=== PATIENT | female | born 1945 | race Caucasian/White ===

== ENCOUNTER 2017-01-01 13:51 | Emergency (ER) | payer MEDICARE, OTHER ==
[2017-01-01] MEDS ORDERED: KETOROLAC TROMETHAMINE 60 MG/2 ML VIAL IM ONE ×2 (14:21→15:19)
--- OUTSIDE RECORDS SUMMARY | 2017-01-01 14:35 | XMS REPORT | Continuity of Care Document ---
:1945 Author Organization [facility] ([facility]) Address [address] [place] [address] Phone [phone] Care Team Providers Name Role Phone Unavailable Primary Care Provider Unavailable Source Comments This disclosure is being made pursuant to the Care Everywhere program, applicable federal and state laws, and may not contain all informaitonavailable regarding this patient.[facility] ([facility]) Active Allergies and Adverse Reactions Not on File Current Medications Not on file Active Problems Not on file Social History Tobacco Use Types Packs/Day Years Used Date Never Assessed Plan of Care Health Maintenance Due Date Last Done Comments HCV Screening 1945 Hepatitis B Vaccine (1 of 3 - Primary Series) 1945 Tdap Vaccine 1958 Lipid Disorder Screening 1965 Td Vaccine 1965 Mammogram 1987 Colonoscopy 09/15/1997 Zoster Vaccine 2007 Osteoporosis Screening (DXA Bone Density) 2012 Pneumococcal Vaccine (1 of 2 - PCV13) 2012 Influenza Vaccine: Seasonal (#1) 06/22/2016 Results from Last 3 Months Not on file
--- NOTE | 2017-01-01 16:16 | ERNOTE ---
Lower Extremity HPI - Narrative Date of Service: 01/01/17 - General Lower Extremities Pain: hip: left Time Seen by Provider: 01/01/17 14:12 Source: patient, RN notes reviewed Exam Limitations: no limitations - Immun/Allergies/Home Medications Immunizations: IMMUNIZATION HX Immunizations Up to Date Yes History of Influenza Vaccine Yes Hx Pneumococcal Vaccination Yes Allergies/Adverse Reactions: Allergies Allergy/AdvReac Type Severity Reaction Status Date / Time tramadol AdvReac Mild PROJECTILE Verified 01/01/17 14:05 VOMITING PLASTIC TAPE AdvReac Mild RASH Uncoded 01/13/16 07:53 Home Medications: HOME MEDICATIONS Diltiazem HCl [Cardizem Cd] 240 mg PO DAILY 01/24/15 [Last Taken 03/17/15 21:00] Hydrochlorothiazide [Hydrodiuril] 25 mg PO DAILY 01/24/15 [Last Taken Unknown] Insulin Glargine,Hum.rec.anlog [Lantus] 45 units SC BID 01/24/15 [Last Taken Unknown] Lisinopril [Zestril] 40 mg PO DAILY 01/24/15 [Last Taken 06/17/15 0500] Metformin HCl [Glumetza] 1,000 mg PO BID 01/24/15 [Last Taken Unknown] Simvastatin [Zocor] 20 mg PO HS 01/24/15 [Last Taken Unknown] traZODone HCL [Desyrel] 100 mg PO HS 01/24/15 [Last Taken Unknown] Cholecalciferol (Vitamin D3) [Vitamin D3] 2,000 unit PO DAILY 06/13/15 [Last Taken Unknown] Calcium/Vit B12/FA/Pyridoxine [Folic Acid-Vit B6-Vit B12 Tab] 1 each PO DAILY [Last Taken Unknown] [place]-3 Fatty Acids/Fish Oil [Fish Oil 1,000 mg Capsule] 2 each PO DAILY [Last Taken Unknown] - History of Present Illness Narrative: Irais is a 71 year old female ambulatory to the ED for right hip pain that began a few days ago. She denies any injury. She reports an increase in pain when she lifted her leg to step into the shower today. She then had to drive to [place]. When she got in the car to come back home, she could not lift her left leg into the car d/t pain. She has taken ibuprofen with some improvement. She has had bilateral knee replacements and a low back surgery. She reports some chronic low back pain that worsens if she does much walking. Subsequent Symptoms: Denies: sensory loss, numbness, motor loss Prior Treament: Denies: similar symptoms before Review of Systems - Review of Systems Constitutional: Absent: recent illness, fever, malaise EYE: Present: no symptoms reported ENT: Present: no symptoms reported Respiratory: Present: no symptoms reported Cardiology: Present: no symptoms reported Gastrointestinal/Abdominal: Present: no symptoms reported Genitourinary: Present: no symptoms reported Musculoskeletal: Present: back pain, muscle pain, joint pain. Absent: neck pain , joint swelling Skin: Absent: lesions, lumps, change in color Neurological: Absent: weakness, numbness, tingling Endocrine: Present: no symptoms reported Hematologic/Lymphatic: Present: no symptoms reported Psych: Present: no symptoms reported - Patient's Past Medical History Patient History - Medical: Anxiety, Arthritis, Cataracts, Diabetes Type 2, Depression, Headache, Obesity, UTI'S Patient History - Cardiac/Respiratory: Hypertension, Hyperlipidemia Patient History - Cancer: No Hx of Cancer Patient History - Surgical Procedures: Back Surgery, Cataracts, Cholecystectomy , Colonoscopy, Total Knee Replacement Patient History - Other: None LMP (females 10-50): Menopausal - Family History Mother Family History - Medical: , Diabetes Type 2 Father Family History - Medical: , Diabetes Type 2 Family History - Cardiac/Respiratory: Hypertension Children Family History - Cardiac/Respiratory: Hypertension - Social History Living Situations: home Abuse History: No History of abuse Psych History: Hx of Anxiety, Hx of Depression Smoking Status: Never smoker Alcohol Use: occasionally Drug Use: none - Immunizations Immunizations Up to Date: Yes Hx Pneumococcal Vaccination: Yes History of Influenza Vaccine: Yes Physical Exam - Physical Exam General Appearance: Present: wd/wn, alert, no apparent distress, obese Respiratory: Present: no respiratory distress, normal breath sounds, no accessory muscle use, lungs clear Cardiovascular/Chest: Present: regular rate, rhythm, no murmur, normal peripheral pulses Back Exam: Present: normal inspection, no vertebral tenderness Extremity Exam: Present: no edema, decreased range of motion - left hip, other - tenderness with palpation of left anterior hip and left SI joint region Neurological Exam: Present: alert, oriented, normal mood/affect, no motor/ sensory deficits Skin Exam: Present: normal color, warm/dry ED Progress - Vital Signs Patient's Vital Signs:: I have reviewed the patient's vital signs. Vital Signs: Vital Signs 01/01/17 14:00 Temperature 36.8 C Pulse Rate 86 Respiratory 18 Rate Blood Pressure 207/98 O2 Sat by Pulse 97 Oximetry - X-Ray X-Ray #1 X-Ray: hip Interpretation: Reviewed by me X-ray Comments: Technique: Hip Pelvis 2-3 views LT * Findings: There is moderate to advanced osteoarthritis identified within the bilateral hips, left greater than right. No fracture or dislocation. Normal bone mineralization. No erosive change. No lytic or blastic lesions. Soft tissues are unremarkable. The crosstable lateral is nondiagnostic. IMPRESSION: 1. Degenerative change without acute osseous abnormality. Electronically signed by Thomas Montenegro M.D.. - Progress/Reassessment Chief Complaint: Hip Pain/Injury Progress:: Improved Progress Note-Subjective: 01/01/17 16:16 Verbalizes some improvement in pain with Toradol. Waiting for xray results. Departure Clinical Impression: Osteoarthritis of left hip Qualifiers: Osteoarthritis type: primary Qualified Code(s): M16.12 - Unilateral primary osteoarthritis, left hip - Departure Disposition: Home Follow Up Needed Condition: Stable Instructions: Arthritis Additional Instructions: OK to take ibuprofen - just make sure you are not taking it on an empty stomach Consider seeing orthopedics for further treatment options Referrals: Philip Monterroso MD [Primary Care Provider] - Toby Riggs MD [Staff Physician] -
[2017-01-01 17:04] VITALS: BP 143/67
== END 2017-01-01 16:37 | disposition home or self-care (01) ==
LOC: ER 13:51
DX: M16.12 Unilateral primary osteoarthritis, left hip (principal); I10 Essential (primary) hypertension; E78.5 Hyperlipidemia, unspecified; E11.9 Type 2 diabetes mellitus without complications; Z79.4 Long term (current) use of insulin; Z87.440 Personal history of urinary (tract) infections

== ENCOUNTER 2017-03-29 10:07 | Day surgery (SDC) | payer MEDICARE, OTHER ==
[~2017-03-29 10:07] MED LIST: RINGERS SOLUTION,LACTATED 1,000 ML IV PRN
--- OUTSIDE RECORDS SUMMARY | 2017-03-29 10:11 | XMS REPORT | Continuity of Care Document ---
:1945 Author Organization [facility] ([facility]) Address [address] [place] [address] Phone [phone] Care Team Providers Name Role Phone Unavailable Primary Care Provider Unavailable Source Comments This disclosure is being made pursuant to the Care Everywhere program, applicable federal and state laws, and may not contain all informaitonavailable regarding this patient.[facility] ([facility]) Active Allergies and Adverse Reactions Not on [...]
[2017-03-29] MEDS ORDERED: RINGERS SOLUTION,LACTATED 1,000 ML IV ONE (13:25)
[2017-03-29] MEDS ORDERED: RINGERS SOLUTION,LACTATED 1,000 ML IV PRN (14:32)
[2017-03-29 15:17] VITALS: BP 165/87
--- NOTE | 2017-03-29 18:33 | OR ---
Operative Report - Dictated Report Narrative: OPERATIVE REPORT DATE OF OPERATION: 03/29/2017 PREOPERATIVE DIAGNOSIS: History of colon polyps POSTOPERATIVE DIAGNOSIS: Three 4mm polyps at 60 cm, 35 cm, 30 cm (pathology pending). Very redundant colon. Obstructive sleep apnea. Exam only accomplished to the presumed hepatic flexure OPERATION: Colonoscopy to the hepatic flexure with hot biopsy forceps polypectomy 3 SURGEON: Ashly Rivera MD ANESTHESIA: BRIAN Snowden CRNA INDICATIONS FOR PROCEDURE: The patient is a 71-year-old female referred by Dr. Monterroso. She has had 3 previous colonoscopies (2000, 2005, and 2010). In 2010 she was found to have a possible polyp near the hepatic flexure was advised a 3-5 year follow-up. FINDINGS: Evidence of obstructive sleep apnea. Very redundant capacious colon with exam only accomplished to the hepatic flexure. Three 4 mm polyps at 60 cm, 30 cm, and 35 cm NARRATIVE OF PROCEDURE: The patient was identified in the holding area, and prior to the administration of anesthetic, a multidisciplinary timeout was observed. With the patient in the left lateral position and after the administration of intravenous sedation, the perineum was inspected. There was no evidence of pilonidal disease or skin breakdown. The external appearance of the anus was normal. Sphincter tone was good. The flexible fiberoptic colonoscope was inserted into the rectum which was insufflated with air. The rectal mucosa and submucosal vascular pattern appeared normal, the prep was seen to be complete. The scope was advanced through a very tortuous sigmoid colon, up the descending colon, and around the splenic flexure where the triangular haustral architecture of the transverse colon was seen. The scope was advanced across the transverse colon, to the presumed hepatic flexure where angulation was encountered. Despite persistent maneuvering the corner could not be negotiated. The scope was withdrawn and readvanced on 3 separate occasions with similar results. The scope was therefore slowly withdrawn in a circular fashion so that all aspects of distal colonic mucosa were inspected. The colon was very tortuous and capacious in character, however the haustral architecture appeared well preserved throughout with no evidence of external compression. The mucosa and submucosal vascular pattern appeared normal, specifically there was no gross evidence to suggest colitis or inflammatory bowel disease and no AV malformations were seen. No diverticulosis was demonstrated. 4 mm polyps were encountered at 60 cm, 35 cm, and 30 cm. These were biopsied and then thoroughly destroyed with electrocautery. The sites were seen to be complete and hemostatic. The scope was gradually withdrawn to the level of the rectum. As much insufflated air as possible was removed. The scope was withdrawn from the patient and the procedure terminated. The patient tolerated the anesthetic and procedure well without complication and was transferred back to the ambulatory surgery area awake and in stable condition. The patient remained stable throughout a period of postoperative observation. She denied abdominal discomfort, was able to tolerate by mouth intake, and was up without assistance. I shared the operative findings with the patient and she was given copies of the photographs which appear in the medical record. She was discharged home with instructions not to engage in hazardous activity today , but may resume normal activity tomorrow, and advance diet as tolerated. She is to continue those medications as listed in the history and physical exam. I made arrangements to contact her with the biopsy reports and will make additional recommendations for treatment and follow-up based upon those results. Reviewed and electronically signed
== END 2017-03-29 10:08 | disposition home or self-care (01) ==
LOC: AMB 10:07
PROVIDERS: ATTEND Surgery
PROC: 0DBE8ZX Excision of Large Intestine, Via Natural or Artificial Opening Endoscopic, Diagnostic (ICD-10-PCS; principal; 2017-03-29 11:55)
DX: Z12.11 Encounter for screening for malignant neoplasm of colon (principal); K63.5 Polyp of colon; I10 Essential (primary) hypertension; E11.9 Type 2 diabetes mellitus without complications; E78.5 Hyperlipidemia, unspecified; M19.90 Unspecified osteoarthritis, unspecified site; F41.8 Other specified anxiety disorders; E66.9 Obesity, unspecified; Z68.43 Body mass index [BMI] 50.0-59.9, adult; G47.33 Obstructive sleep apnea (adult) (pediatric)

== ENCOUNTER 2021-04-28 20:31 | Inpatient (IN) ==
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
[2021-04-28] MEDS ORDERED: LIDOCAINE HCL/EPINEPHRINE 20 ML VIAL IJ ONE (22:19)
[2021-04-28] MEDS ORDERED: LIDOCAINE HCL/EPINEPHRINE 50 ML VIAL IJ ONE (22:22)
[2021-04-28 23:06] LABS: Hematocrit 40.2 % (37.0-47.0); Hemoglobin 13.1 gm/dL (12.5-16.0); Mean Cell Volume 92.8 fl (78-100); Mean Corpuscular Hemoglobin 30.3 pg (27-31); Mean Corpuscular Hgb Conc 32.6 g/dl (32-36); Mean Platelet Volume 9.5 fl (8-12.5); Neutrophil # 10.2 K/mm3 (1.3-6.0); Neutrophil % 67.9 % (42-75.0); Platelet Count 244 K/mm3 (150-450); Red Blood Count 4.33 M/mm3 (4.2-5.4)
[2021-04-28 23:41] LABS: Albumin * 3.7 gm/dl (3.4-5.0); Anion Gap 11.9 mmol/L (6.8-13.8); BUN/Creatinine Ratio 17.9 (9.0-21.6); Bilirubin, Total 0.2 mg/dL (0.0-1.1); Calcium * 9.1 mg/dL (7.9-10.9); Carbon Dioxide 29.5 mmol/L (24-32.6); Potassium 4.4 mmol/L (3.4-4.6); Total Protein 7.2 gm/dL (6.2-8.2)
[2021-04-29] MEDS: MORPHINE SULFATE 2 MG/ML DISP.SYRIN IV SCH ×2 (03:25→07:28)
[2021-04-29] MEDS ORDERED: ACETAMINOPHEN 325 MG TABLET PO PRN (09:11)
[2021-04-29] MEDS ORDERED: ALBUTEROL SULFATE 2.5 MG/3 ML VIAL.NEB IH PRN (09:11)
[2021-04-29] MEDS: ONDANSETRON HCL/PF 2 MG/ML VIAL IV PRN (09:16)
[2021-04-29] MEDS: MORPHINE SULFATE 4 MG/ML SYRG IV PRN ×2 (09:20→22:00)
[2021-04-29] MEDS ORDERED: NORMAL SALINE 1,000 ML IV ONE (09:25)
--- NOTE | 2021-04-29 09:35 | HP ---
Chief Complaint - Chief Complaint Date of Service: 04/29/21 Time of Service: 09:27 Chief Complaint: I fell and broke my leg now I have right leg pain History of Present Illness: 75-year-old female with past medical history of type 2 diabetes, hypertension, morbid obesity, depression, anxiety disorder, hyperlipidemia, and bilateral total knee replacements was brought to the ER for evaluation of injuries that she sustained when she fell yesterday evening in her home. Patient reports she was at home with her dog and get up the phone with her niece and went to open the door to let the dog out and somehow she lost her footing and fell onto her right side. Patient reports hitting her head on a steel door frame sustaining a laceration to her forehead, she does however denies losing consciousness or any neurological symptoms. Patient immediately felt pain in her right leg specifically her knee and rated as a 10 out of 10. She had bilateral knee replacements several years ago and had no issues with them until now. Once in the ER the patient underwent imaging that confirmed a fracture of distal portion of the right femur, imaging of her head and neck was negative for any acute injuries. Labs on admission were nonremarkable, she has adequate hemoglobin and an unremarkable CMP. Orthopedics have been consulted and evaluated the patient at bedside and are planning to take her to surgery later this afternoon or tomorrow morning depending on when the hardware arrives. Until then the patient will be left n.p.o., will receive medications for pain management and will be giving her routine medications to manage her chronic conditions. We will continue to monitor closely. Medical History (Last Reviewed 04/29/21 @ 01:44 by Whitney Umanzor RN) Strain of calf muscle (Acute) Hypertension (Acute) Onset Date: ~1996 Hyperlipidemia (Acute) Onset Date: ~2003 Diabetes mellitus (Acute) Onset Date: ~1996 Internal derangement of knee (Acute) Osteoarthritis of left hip (Acute) Anxiety and depression Onset Date: Unknown Influenza vaccine not given wants to receive later 09/07/19. MONICA Daniels Morbid obesity Onset Date: Unknown Osteoarthritis Onset Date: Unknown CTS (carpal tunnel syndrome) Onset Date: ~2008 Bilateral Surgical History: Surgical History (Last Reviewed 04/29/21 @ 01:44 by Whitney Umanzor RN) Total knee replacement status (Acute) H/O arthroscopic knee surgery Onset Date: ~1990 Left H/O barium enema Onset Date: ~06/18/17 H/O colonoscopy Onset Date: ~03/29/1704/2001: [place] - normal 09/2006: normal 10/28/2011: capacious colon 03/2017: to hepatic flexure, very redundant capacious colon, tubular adenoma X3, H/O laminectomy Onset Date: ~09/30/10 History of carpal tunnel release Onset Date: ~09/2009, 02/03/2010, 12/16/2015, 01/13/2016 History of cholecystectomy Onset Date: ~1973 History of total knee arthroplasty Onset Date: ~06/17/15 03/18/15 (RT), 06/17/15 (LT) Family History: Family History (Last Reviewed 04/29/21 @ 01:44 by Whitney Umanzor RN) Brother Polio Obesity Father , 82 Colon cancer Mother Heart problem Colon cancer Sister Diabetes Social History: (Last Reviewed 04/29/21 @ 01:44 by Whitnye Umanzor RN) Social History: adopted: No shelter: No Marital status: / lives independently: Yes current occupational status: retired current occupation: retired Highest level of school completed/degree received: high school graduate Service: No Tobacco: Smoking Status: Never smoker Alcohol: alcohol intake: current alcohol intake frequency: holiday/special occasion Substance Use: substance use type: does not use Dietary Habits: caffeine: Yes caffeine comment: 6 Type: coffee Peds Patient Hx - Developmental: No Pertinent Hx Peds Patient Hx - Medical: No Pertinent Hx Peds Patient Hx - Cardiac/Respiratory: No Pertinent Hx Peds Patient Hx - Surgical: No Surgical History Patient History - Cancer: No Hx of Cancer Review Of Systems (GEN) - Review of Systems Generalized/Overall Review: Present: No Symptoms Reported EENTM: Present: No Symptoms Reported Respiratory: Present: No Symptoms Reported Cardiac: Present: No Symptoms Reported Abdominal: Present: No Symptoms Reported Genitourinary: Present: No Symptoms Reported Musculoskeletal: Present: Joint Pain - Right lower extremity pain, Joint Swelling Neurological: Present: No Symptoms Reported Skin: Present: No Symptoms Reported Endocrine: Present: No Symptoms Reported Immunizations: IMMUNIZATION HX Immunizations Up to Date Yes Immunizations Comment full COVID vaccine History of Influenza Vaccine Yes Hx Pneumococcal Vaccination Yes Allergies/Adverse Reactions: Allergies Allergy/AdvReac Type Severity Reaction Status Date / Time tramadol AdvReac Mild PROJECTILE Verified 04/28/21 20:41 VOMITING PLASTIC TAPE AdvReac Mild RASH Uncoded 04/28/21 20:41 Home Medications: HOME MEDICATIONS Aspirin 325 mg PO DAILY 03/15/17 [Last Taken Unknown] ibuprofen 200 mg tablet 200 mg PO Q8H PRN 05/22/18 [Last Taken Unknown] albuterol sulfate 90 mcg/actuation aerosol inhaler 2 inh IH Q6H PRN #18 g 09/07/19 [Last Taken Unknown] cholecalciferol (vitamin D3) 50 mcg (2,000 unit) capsule 4,000 unit PO DAILY #180 cap 09/07/19 [Last Taken Unknown] vitamin B12 500 mcg-folic acid 400 mcg tablet 1 tab PO DAILY #90 tab 09/07/19 [Last Taken Unknown] ascorbic acid (vitamin C) 1,000 mg tablet 1 g PO DAILY #60 tab 10/06/19 [Last Taken Unknown] blood sugar diagnostic See Dose Instructions .ROUTE .MEDSUPPLY #200 ea 02/07/20 [Last Taken Unknown] compression stockings 0 .ROUTE .MEDSUPPLY #1 ea 09/06/20 [Last Taken Unknown] metformin 1,000 mg 24 hr tablet,extended release 1,000 mg PO BID #180 tab 09/06/20 [Last Taken Unknown] atorvastatin 10 mg tablet 10 mg PO DAILY #90 tab 10/03/20 [Last Taken Unknown] diltiazem HCl 240 mg capsule,extended release 24 hr, controlled 240 mg PO Q24H #90 cap 10/03/20 [Last Taken Unknown] losartan 50 mg tablet 50 mg PO DAILY #90 tab 10/03/20 [Last Taken Unknown] sitagliptin 100 mg tablet 100 mg PO DAILY #90 tab 10/03/20 [Last Taken Unknown] insulin syringe-needle U-100 1 mL 31 gauge x 04/06" See Rx Instructions .ROUTE .MEDSUPPLY #100 ea 11/26/20 [Last Taken Unknown] insulin glargine 100 unit/mL subcutaneous solution 53 unit SUBCUT BID #50 ml 01/07/21 [Last Taken Unknown] spironolactone 25 mg tablet 25 mg PO DAILY #90 tab 03/06/21 [Last Taken Unknown] Exam - Exam Vital Signs: Vital Signs - Last Taken Temp 36.8 C 04/29/21 06:00 Pulse 91 06/08/21 06:00 Resp 20 04/29/21 06:00 BP 159/89 H 04/29/21 06:00 Pulse Ox 100 04/29/21 06:00 Constitutional: Present: Alert, Oriented x3, Cooperative, Well developed, Well nourished, No distress, Morbidly obese ENT Exam: Present: normal ENT inspection, hearing grossly normal Eye Exam: bilateral eye: normal inspection, PERRL, EOMI Neck: Present: non-tender, full range of motion, supple, normal inspection, trachea midline Back Exam: Present: normal inspection, no CVA tenderness, no vertebral tende rness Breasts: Present: Exam deferred, Nontender Respiratory: Present: chest non-tender, lungs clear, normal breath sounds, no respiratory distress, no accessory muscle use Cardiovascular/Chest: Present: normal peripheral pulses, regular rate, rhythm, no chest tenderness, no edema, no gallop, no JVD, no murmur, no rub Peripheral Pulses: dorsalis-pedis (R): 3+, dorsalis-pedis (L): 3+ Abdomen: Present: Normal bowel sounds, soft, nontender, nondistended, no rebound tenderness, no hepatospenomegaly, obese /Rectal: Present: Exam deferred Extremity: Present: no pedal edema, no calf tenderness, lower extremity edema, leg pain - Right lower extremity pain, other - Right lower extremity shortened and externally rotated, sensation and movement intact Skin Exam: Present: normal color, warm/dry, no cyanosis Lymphatic: Present: no adenopathy Neurologic: Present: electrical controls assembler II-XII nml as tested, normal cerebellar test, no motor/sensory deficits, alert, normal mood/affect, oriented x 3 Appearance: Present: appropriate appearance, appropriate insight, neat, no memory impairment Eye contact: Present: cooperative, good eye contact, normal speech Thoughts: Present: normal thought pattern, no apparent hallucination Diagnostic Studies: Abnormal Lab Results 04/28/21 04/28/21 Range/Units 23:00 23:00 WBC 15.0 H (4.0-10.5) K/mm3 Immature Gran % (Auto) 0.70 H (0.001-0.429) % Immature Gran # (Auto) 0.10 H (0.000-0.0310) K/mm3 Neutrophils # 10.2 H (1.3-6.0) K/mm3 Monocytes # 1.2 H (0.0-1.0) k/mm3 Est GFR (Non-Af Amer) 54 L (60-130) mL/min Random Glucose 179 H (70-110) mg/dL Laboratory Results WBC 15.0 K/mm3 (4.0-10.5) H 04/28/21 23:00 RBC 4.33 M/mm3 (4.2-5.4) 04/28/21 23:00 Hgb 13.1 gm/dL (12.5-16.0) 04/28/21 23:00 Hct 40.2 % (37.0-47.0) 04/28/21 23:00 MCV 92.8 fl (78-100) 04/28/21 23:00 MCH 30.3 pg (27-31) 04/28/21 23:00 MCHC 32.6 g/dl (32-36) 04/28/21 23:00 RDW 12.0 % (11.5-14.0) 04/28/21 23:00 Plt Count 244 K/mm3 (150-450) 04/28/21 23:00 MPV 9.5 fl (8-12.5) 04/28/21 23:00 Immature Gran % (Auto) 0.70 % (0.001-0.429) H 04/28/21 23:00 Immature Gran # (Auto) 0.10 K/mm3 (0.000-0.0310) H 04/28/21 23:00 Neutrophils % 67.9 % (42-75.0) 04/28/21 23:00 Lymphocytes % 21.8 % (20-51) 04/28/21 23:00 Monocytes % 7.8 % (0.0-9) 04/28/21 23:00 Eosinophils % 1.3 % (0.0-3.0) 04/28/21 23:00 Basophils % 0.5 % (0.0-1.0) 04/28/21 23:00 Nucleated RBC % 0.0 k/mm3 (0-1) 04/28/21 23:00 Neutrophils # 10.2 K/mm3 (1.3-6.0) H 04/28/21 23:00 Lymphocytes # 3.28 k/mm3 (1.5-3.5) 04/28/21 23:00 Monocytes # 1.2 k/mm3 (0.0-1.0) H 04/28/21 23:00 Eosinophils # 0.2 k/mm3 (0.0-0.7) 04/28/21 23:00 Absolute Basophils 0.1 k/mm3 (0.0-0.1) 04/28/21 23:00 Sodium 139 mmol/L (132-142) 04/28/21 23:00 Plasma Sodium 140 mmol/L (130-142) 04/28/21 23:00 Potassium 4.4 mmol/L (3.4-4.6) 04/28/21 23:00 Chloride 102 mmol/L (97-106) 04/28/21 23:00 Carbon Dioxide 29.5 mmol/L (24-32.6) 04/28/21 23:00 Anion Gap 11.9 mmol/L (6.8-13.8) 04/28/21 23:00 BUN 19 mg/dL (3-23) 04/28/21 23:00 Creatinine 1.06 mg/dL (0.4-1.4) 04/28/21 23:00 Est GFR (Non-Af Amer) 54 mL/min (60-130) L 04/28/21 23:00 BUN/Creatinine Ratio 17.9 (9.0-21.6) 04/28/21 23:00 Random Glucose 179 mg/dL (70-110) H 04/28/21 23:00 Calcium 9.1 mg/dL (7.9-10.9) 04/28/21 23:00 Calcium Adj for Albumin 9.0 mg/dL (8.4-10.2) 04/28/21 23:00 Total Bilirubin 0.2 mg/dL (0.0-1.1) 04/28/21 23:00 AST 16 U/L (0-48) 04/28/21 23:00 ALT 41 U/L (19-67) 04/28/21 23:00 Alkaline Phosphatase 67 U/L (50-170) 04/28/21 23:00 Total Protein 7.2 gm/dL (6.2-8.2) 04/28/21 23:00 Albumin 3.7 gm/dl (3.4-5.0) 04/28/21 23:00 SARS-CoV-2 (PCR) Not detected (NotDetected) 04/28/21 21:58 Assessment/Plan - Narrative Narrative: Patient was evaluated medical chart was reviewed and decision to admit for a diagnosis of right femoral fracture secondary to a fall was made. We will follow the lead of the orthopedic team who have ordered all the necessary hardware for the patient's surgery and plan on taking her to surgery later this afternoon or tomorrow morning. The patient's chronic conditions are all adequately controlled, she presents stable vitals and is in good spirits therefore we are medically clearing her for surgery. - Assessment/Plan (1) Femur fracture, right Problem: Acute Qualifiers: Encounter type: initial encounter Femur location: distal, unspecified portion Fracture type: closed Fracture morphology: other fracture Qualified Code(s): S72.491A - Other fracture of lower end of right femur, initial encounter for closed fracture (2) Laceration of scalp Problem: Acute Qualifiers: Encounter type: initial encounter Qualified Code(s): S01.01XA - Laceration without foreign body of scalp, initial encounter (3) Hypertension Problem: Acute Qualifiers: (4) Hyperlipidemia Problem: Acute Qualifiers: (5) Diabetes mellitus Problem: Acute Qualifiers: (6) Internal derangement of knee Problem: Acute (7) Total knee replacement status Problem: Acute Qualifiers:
--- NOTE | 2021-04-29 09:40 | CONS ---
- Reason for consultation (1) Femur fracture, right Date of Service: 04/29/21 HPI - General Date of Service: 04/29/21 Narrative: Irais reports that she sustained a ground-level fall while she was on her phone trying to let her dog out. When she fell she hit her head but did not lose consciousness. She reported severe right leg pain and was unable to ambulate. She was brought into the emergency department. X-rays evaluated at that time showed a periprosthetic right femur fracture. She is admitted to Dr. Garcia's service. She reports history of right knee replacement in 2014. She has been extremely happy with her knee replacement not had any difficulty related to it. Source: patient Exam Limitations: no limitations - History of Present Illness Timing/Duration: 24 hours Allergies/Adverse Reactions: Allergies tramadol Adverse Reaction (Mild, Verified 04/28/21 20:41) PROJECTILE VOMITING PLASTIC TAPE Adverse Reaction (Mild, Uncoded 04/28/21 20:41) RASH Home Medications: Home Medications Medication Instructions Recorded Last Taken Aspirin 325 mg PO DAILY 03/15/17 Unknown ibuprofen 200 mg tablet 200 mg PO Q8H PRN 05/22/18 Unknown albuterol sulfate 90 mcg/actuation 2 inh IH Q6H PRN #18 g 09/07/19 Unknown aerosol inhaler cholecalciferol (vitamin D3) 50 4,000 unit PO DAILY #180 cap 09/07/19 Unknown mcg (2,000 unit) capsule vitamin B12 500 mcg-folic acid 400 1 tab PO DAILY #90 tab 09/07/19 Unknown mcg tablet ascorbic acid (vitamin C) 1,000 mg 1 g PO DAILY #60 tab 10/06/19 Unknown tablet blood sugar diagnostic See Dose Instructions .ROUTE 02/07/20 Unknown .MEDSUPPLY #200 ea compression stockings 0 .ROUTE .MEDSUPPLY #1 ea 09/06/20 Unknown metformin 1,000 mg 24 hr 1,000 mg PO BID #180 tab 09/06/20 Unknown tablet,extended release atorvastatin 10 mg tablet 10 mg PO DAILY #90 tab 10/03/20 Unknown diltiazem HCl 240 mg 240 mg PO Q24H #90 cap 10/03/20 Unknown capsule,extended release 24 hr, controlled losartan 50 mg tablet 50 mg PO DAILY #90 tab 10/03/20 Unknown sitagliptin 100 mg tablet 100 mg PO DAILY #90 tab 10/03/20 Unknown insulin syringe-needle U-100 1 mL See Rx Instructions .ROUTE 11/26/20 Unknown 31 gauge x 04/06" .MEDSUPPLY #100 ea insulin glargine 100 unit/mL 53 unit SUBCUT BID #50 ml 01/07/21 Unknown subcutaneous solution spironolactone 25 mg tablet 25 mg PO DAILY #90 tab 03/06/21 Unknown Procedures Colonoscopy (10/28/11) Excision of Large Intestine, Via Natural or Artificial Opening Endoscopic, Diagnostic (03/29/17) Introduction of Anti-inflammatory into Joints, Percutaneous Approach (01/13/17) Introduction of Local Anesthetic into Joints, Percutaneous Approach (01/13/17) Replacement of Left Lens with Synthetic Substitute, Percutaneous Approach (12/16/15) Replacement of Right Lens with Synthetic Substitute, Percutaneous Approach (01/13/16) Total knee replacement (06/17/15) Medications - Medications Current Medications: Current Medications Morphine Sulfate (Morphine Sulfate 4 Mg/Ml Syrg) 2 mg IV Q4H PRN PRN Reason: Pain Stop: 05/29/21 08:53 Last Admin: 04/29/21 09:20 Dose: 2 mg Documented by: Ondansetron HCl (Ondansetron Hcl/Pf 2 Mg/Ml Vial) 4 mg IV Q4H PRN PRN Reason: Nausea Stop: 05/29/21 01:00 Last Admin: 04/29/21 09:16 Dose: 4 mg Documented by: Physical Examination - Exam Narrative: At this time patient is lying in bed comfortable. Morbid obesity. No apparent distress. Local discomfort right distal femur with palpation. She reports sensation intact in right lower extremity. She is able to plantarflex and dorsiflex her right ankle. Pulses intact right lower extremity. X-rays reviewed show mildly displaced periprosthetic transverse fracture of the distal right femur. Vital Signs: Vital Signs - Last Taken Temp 36.8 C 04/29/21 06:00 Pulse 91 04/29/21 06:00 Resp 20 04/29/21 06:00 BP 159/89 H 04/29/21 06:00 Pulse Ox 100 04/29/21 06:00 O2 Oxygen Delivery Method CPAP Constitutional: Present: Alert, Oriented x3, Cooperative, No distress - Results and Findings: Lab/Microbiology results last 24 hrs: Abnormal/Pending Laboratory Last 24 HRS 04/28/21 04/28/21 23:00 23:00 WBC 15.0 H Immature Gran % (Auto) 0.70 H Immature Gran # (Auto) 0.10 H Neutrophils # 10.2 H Monocytes # 1.2 H Est GFR (Non-Af Amer) 54 L Random Glucose 179 H - Assessments/Findings (1) Femur fracture, right Diagnosis(s): Plan is open reduction internal fixation. Surgical risk discussed. Consents obtained. Patient's right lower extremity marked by Dr. Riggs. Problem: Acute Qualifiers: Encounter type: initial encounter Femur location: distal, unspecified portion Fracture type: closed Fracture morphology: other fracture Qualified Code(s): S72.491A - Other fracture of lower end of right femur, initial encounter for closed fracture
[2021-04-29] MEDS: SPIRONOLACTONE 25 MG TABLET PO SCH (12:51)
[2021-04-29] MEDS: DILTIAZEM HCL 240 MG CAP.SR.24H PO SCH ×2 (12:53→22:10)
[2021-04-29] MEDS: LOSARTAN POTASSIUM 50 MG TABLET PO SCH ×2 (12:54→22:11)
[2021-04-29] MEDS: INSULIN GLARGINE,HUM.REC.ANLOG 100 UNITS/ML VIAL SC SCH ×2 (12:54→20:47)
[2021-04-29] MEDS: CHOLECALCIFEROL 1,000 UNIT CAPSULE PO SCH (12:54)
[2021-04-29] MEDS: sitaGLIPtin PHOSPHATE 50 MG TABLET PO SCH (12:54)
--- NOTE | 2021-04-29 14:50 | ANES ---
Anesthesia Pre Procedure Eval Vitals/Labs: Last Vital Signs Temp 36.6 C 04/29/21 09:00 Pulse 89 04/29/21 14:12 Resp 18 04/29/21 14:12 BP 158/80 H 04/29/21 09:00 Pulse Ox 99 04/29/21 14:12 HOME MEDICATIONS Aspirin 325 mg PO DAILY 03/15/17 [Last Taken Unknown] ibuprofen 200 mg tablet 200 mg PO Q8H PRN 05/22/18 [Last Taken Unknown] albuterol sulfate 90 mcg/actuation aerosol inhaler 2 inh IH Q6H PRN #18 g 09/07/19 [Last Taken Unknown] cholecalciferol (vitamin D3) 50 mcg (2,000 unit) capsule 4,000 unit PO DAILY #180 cap 09/07/19 [Last Taken Unknown] vitamin B12 500 mcg-folic acid 400 mcg tablet 1 tab PO DAILY #90 tab 09/07/19 [Last Taken Unknown] ascorbic acid (vitamin C) 1,000 mg tablet 1 g PO DAILY #60 tab 10/06/19 [Last Taken Unknown] blood sugar diagnostic See Dose Instructions .ROUTE .MEDSUPPLY #200 ea 02/07/20 [Last Taken Unknown] compression stockings 0 .ROUTE .MEDSUPPLY #1 ea 09/06/20 [Last Taken Unknown] metformin 1,000 mg 24 hr tablet,extended release 1,000 mg PO BID #180 tab 09/06/20 [Last Taken Unknown] atorvastatin 10 mg tablet 10 mg PO DAILY #90 tab 10/03/20 [Last Taken Unknown] diltiazem HCl 240 mg capsule,extended release 24 hr, controlled 240 mg PO Q24H #90 cap 10/03/20 [Last Taken Unknown] losartan 50 mg tablet 50 mg PO DAILY #90 tab 10/03/20 [Last Taken Unknown] sitagliptin 100 mg tablet 100 mg PO DAILY #90 tab 10/03/20 [Last Taken Unknown] insulin syringe-needle U-100 1 mL 31 gauge x 04/06" See Rx Instructions .ROUTE .MEDSUPPLY #100 ea 11/26/20 [Last Taken Unknown] insulin glargine 100 unit/mL subcutaneous solution 53 unit SUBCUT BID #50 ml 01/07/21 [Last Taken Unknown] spironolactone 25 mg tablet 25 mg PO DAILY #90 tab 03/06/21 [Last Taken Unknown] Allergies/Adverse Reactions: Allergies Allergy/AdvReac Type Severity Reaction Status Date / Time tramadol AdvReac Mild PROJECTILE Verified 04/28/21 20:41 VOMITING PLASTIC TAPE AdvReac Mild RASH Uncoded 04/28/21 20:41 - Planned Procedure Planned Procedure: Right femur fracture Medication List Reviewed:: Yes Allergies Verified: Yes Medical History (Last Reviewed 04/29/21 @ 14:49 by Dio Ashraf CRNA) Strain of calf muscle (Acute) Hypertension (Acute) Onset Date: ~1996 Hyperlipidemia (Acute) Onset Date: ~2003 Diabetes mellitus (Acute) Onset Date: ~1996 Internal derangement of knee (Acute) Osteoarthritis of left hip (Acute) Anxiety and depression Onset Date: Unknown Influenza vaccine not given wants to receive later 09/07/19. MONICA Daniels Morbid obesity Onset Date: Unknown Osteoarthritis Onset Date: Unknown CTS (carpal tunnel syndrome) Onset Date: ~2008 Bilateral Surgical History (Last Reviewed 04/29/21 @ 14:49 by Dio Ashraf CRNA) Total knee replacement status (Acute) H/O arthroscopic knee surgery Onset Date: ~1990 Left H/O barium enema Onset Date: ~06/18/17 H/O colonoscopy Onset Date: ~03/29/1704/2001: [place] - normal 09/2006: normal 10/28/2011: capacious colon 03/2017: to hepatic flexure, very redundant capacious colon, tubular adenoma X3, H/O laminectomy Onset Date: ~09/30/10 History of carpal tunnel release Onset Date: ~09/2009, 02/03/2010, 12/16/2015, 01/13/2016 History of cholecystectomy Onset Date: ~1973 History of total knee arthroplasty Onset Date: ~06/17/15 03/18/15 (RT), 06/17/15 (LT) Family History (Last Reviewed 04/29/21 @ 14:49 by Dio Ashraf CRNA) Brother Polio Obesity Father , 82 Colon cancer Mother Heart problem Colon cancer Sister Diabetes - Family Anesthesia History Family History:: no untoward family reactions to anesthesia - Airway/Neck/Teeth Teeth Condition: intact Neck Exam: limited range of motion Mallampatti Score: 4 Thyromental (T-M) distance: > 6 cm Mandibulo Hyoid distance: > 3 cm - Respiratory Respiratory History: CPAP/BiPAP home use Respiratory Physical: lungs clear Smoking Status: Never smoker Sleep Apnea currently treated: Yes Sleep Apnea by current assessment: Yes - Cardiovascular Cardiac History: hypertension, hyperlipidemia Tolerate Activity: Poor Heart Sounds: S1 & S2, Regular - Gastrointestinal NPO since: MN - Anesthesia Assessment and Plan ASA Class: PS, III Anesthesia Type Plan: Spinal Planned difficult intubation/equipment available: No
[2021-04-29] MEDS ORDERED: MIDAZOLAM HCL/PF 5 MG/ML VIAL ONE (15:00)
[2021-04-29] MEDS ORDERED: BUPIVACAINE HCL/PF 10 ML VIAL ONE (15:00)
[2021-04-29] MEDS ORDERED: PROPOFOL VIAL IV ONE (15:00)
[2021-04-29] MEDS ORDERED: ceFAZolin SODIUM 1 GM VIAL ONE (15:06)
[2021-04-29] MEDS: NORMAL SALINE 1,000 ML IV PRN ×2 (16:00→20:57)
[2021-04-29] MEDS ORDERED: ACETAMINOPHEN 500 MG TABLET PO PRN (17:35)
[2021-04-29] MEDS ORDERED: ZOLPIDEM TARTRATE 5 MG TABLET PO PRN (17:35)
[2021-04-29] MEDS ORDERED: diphenhydrAMINE HCL 50 MG/ML VIAL IV PRN (17:35)
[2021-04-29] MEDS ORDERED: MAG HYDROX/ALUMINUM HYD/SIMETH 30 ML UDC PO PRN (17:35)
[2021-04-29] MEDS ORDERED: MAGNESIUM HYDROXIDE 30 ML UDC PO PRN (17:35)
[2021-04-29] MEDS ORDERED: RINGER'S SOLUTION,LACTATED 1,000 ML IV PRN (17:35)
--- NOTE | 2021-04-29 17:44 | OR ---
Operative Report - Dictated Report Narrative: SURGEON: Toby Riggs MD. ROUGHER MACHINE OPERATOR: Jose David Lam PA-C (provided a set of skilled educated hands and assisted with prepping, draping, positioning, retraction, manipulation, irrigation, placement of instruments, placement of implants, closure of the wounds and application of dressings, all of which could not be performed by the available surgical crew). PREOPERATIVE DIAGNOSES: 1. Closed right periprosthetic comminuted femur fracture. Postoperative diagnosis: Same ANESTHESIA: Spinal COMPLICATIONS: None. DRAINS: None. SPECIMENS: None. RETAINED IMPLANTS: Barillas and Nephew 4.5 mm 6-hole locking distal femoral lateral plate with associated screws. TOURNIQUET TIME: None PROCEDURES PERFORMED: 1. Open reduction and internal fixation of right periprosthetic distal femur fracture. 2. Intraoperative interpretation of x-rays. ESTIMATED BLOOD LOSS: 100 mL INDICATIONS FOR PROCEDURE: Mrs. Burt is a 75-year-old female who underwent total knee arthroplasty in the past. She was at home and she got up and had a syncopal episode and woke up to find that her leg was painful and had an inability to weight-bear. She was evaluated in the emergency department and found to have a periprosthetic right femur fracture. She was admitted for preoperative evaluation as well as for surgical intervention. Once it was felt that she was medically sound for surgery, the risks, benefits, and alternatives were discussed including the risk of , blood clot, bleeding, infection, nerve/tendon/blood vessel injury, nonunion, malunion, failure of implants, prominent implants, painful implants, post-traumatic arthrosis, persistent pain, stiffness, prolonged nonweightbearing and need for additional procedures and he wished to proceed. Consent was obtained. DESCRIPTION OF PROCEDURE: After marking the correct extremity, the patient was taken to the operating room, timeout was performed. IV antibiotics of Ancef was administered prior to procedure. A spinal anesthetic was induced at my request. A bump was placed under the right buttock. The right leg was then prepped and draped in standard sterile fashion. C arm was utilized in order to delineate the bony landmarks. The fracture was noted to be just proximal to the implants comminuted with minimally displacement. He which she was in slight recurvatum. A longitudinal incision made along the lateral aspect of the femur. The IT band was split in line with the incision. The lateral quadriceps was elevated and split in order to pass the plate in a submuscular fashion. C-arm was utilized in order to confirm appropriate placement both AP and lateral views. This was then pinned in the place and a series of locking and nonlocking screws were placed distally. This allowed for slight manipulation of the through the fracture to reduce the recurvatum as well as to translate the proximal femur laterally. We then placed a series of nonlocking screws proximally in order to stabilize the femur. C arm was utilized in order to confirm appropriate lengths and stability of the fracture. Once was felt that we had adequately stabilized the periprosthetic femur fracture, final images were obtained with C arm. The wounds were thoroughly irrigated. The fascia was closed with #1 Vicryl. The subcutaneous and fat tissues were closed with 3-0 Vicryl. The skin was closed with Monocryl and cathie. Xeroform, 4 x 4, Sof-Rol and a full leg Crow wrap and a knee immobilizer was applied and the patient was awoken and transferred to postanesthesia care in stable condition. All sponge, needle and instrument counts were correct prior to closing the wounds. Final images were obtained w ith the C-arm.
--- NOTE | 2021-04-29 18:04 | ANES ---
Post Anesthesia Discharge - Transfer of Care Transfer of Care handoff given to nurse: Yes - Discharge from PACU Discharge from PACU when meets criteria: Yes
--- NOTE | 2021-04-29 18:04 | ANES ---
Post Anesthesia Assessment - Vital Signs Vitals: Last Vital Signs Temp 36.2 C 04/29/21 17:55 Pulse 84 04/29/21 18:00 Resp 11 L 04/29/21 18:00 BP 142/65 04/29/21 18:00 Pulse Ox 100 04/29/21 18:00 Airway Patency: Normal - Mental Status Level Of Consciousness: Awake - Pain Level Pain Score: 0 - N/V Assessment Nausea/Vomiting Presence: None Dehydration:: No
[2021-04-29] MEDS: ceFAZolin SODIUM 1 GM in DEXTROSE 5 % IN WATER 100 ML IV SCH ×2 (19:06)
[2021-04-29] MEDS: ROSUVASTATIN CALCIUM 5 MG TABLET PO SCH (20:41)
[2021-04-29] MEDS: SENNOSIDES/DOCUSATE SODIUM 1 TAB TABLET PO SCH (20:42)
[2021-04-29] MEDS: PANTOPRAZOLE SODIUM 20 MG TABLET.DR PO SCH (20:45)
[2021-04-29] MEDS ORDERED: DILTIAZEM HCL 240 MG CAP.SR.24H PO SCH (22:30)
[2021-04-30] MEDS: oxyCODONE HCL/ACETAMINOPHEN 1 TAB TABLET PO PRN ×2 (00:02→04:26)
[2021-04-30] MEDS: ceFAZolin SODIUM 1 GM in DEXTROSE 5 % IN WATER 100 ML IV SCH ×4 (01:28→06:57)
[2021-04-30] MEDS ORDERED: ceFAZolin SODIUM 1 GM VIAL IV PRN (06:00)
[2021-04-30 06:23] LABS: Hematocrit 34.4 % (37.0-47.0); Mean Cell Volume 94.5 fl (78-100); Mean Corpuscular Hemoglobin 30.2 pg (27-31); Mean Platelet Volume 9.4 fl (8-12.5); Platelet Count 216 K/mm3 (150-450); Red Blood Count 3.64 M/mm3 (4.2-5.4); Red Cell Distribution Width 12.1 % (11.5-14.0); White Blood Count 12.7 K/mm3 (4.0-10.5)
[2021-04-30 06:50] LABS: BUN/Creatinine Ratio 19.8 (9.0-21.6); Calcium * 8.1 mg/dL (7.9-10.9); Carbon Dioxide 26.9 mmol/L (24-32.6); Estimated Creat Clear 48.9; Potassium 4.9 mmol/L (3.4-4.6)
[2021-04-30] MEDS: PANTOPRAZOLE SODIUM 20 MG TABLET.DR PO SCH ×2 (06:57→20:27)
[2021-04-30] MEDS: ONDANSETRON HCL/PF 2 MG/ML VIAL IV PRN (07:08)
[2021-04-30] MEDS: SPIRONOLACTONE 25 MG TABLET PO SCH (09:52)
[2021-04-30] MEDS: LOSARTAN POTASSIUM 50 MG TABLET PO SCH (09:52)
[2021-04-30] MEDS: INSULIN GLARGINE,HUM.REC.ANLOG 100 UNITS/ML VIAL SC SCH ×2 (09:54→20:31)
[2021-04-30] MEDS: CHOLECALCIFEROL 1,000 UNIT CAPSULE PO SCH (09:55)
[2021-04-30] MEDS: ASCORBIC ACID 500 MG TABLET PO SCH (09:55)
[2021-04-30] MEDS: sitaGLIPtin PHOSPHATE 50 MG TABLET PO SCH ×2 (09:56→17:47)
--- NOTE | 2021-04-30 10:56 | PN ---
Subjective - Date and Time Seen Date: 04/30/21 Time: 10:50 Subjective Narrative: I have some pain and discomfort but meds help Objective Objective Narrative: 75-year-old female status post right ORIF postop day 1 was evaluated bedside this morning was found to be afebrile in no acute distress. Patient had an uneventful surgery to repair her femoral fracture, no adverse events were reported. Ortho has ordered for her to start physical therapy which she is tolerating without any issues and at the moment she is handling her rehab without any major issues. Patient's pain is being managed with medications while here at the hospital and she will most likely discharged on these pain meds.. Hemoglobin is slightly decreased compared to when she arrived but that is expected with such a surgery. Her Lantus had to be increased this morning due to elevated blood sugars detected on glucose checks. We will continue to monitor closely. - Review of Systems Generalized/Overall Review: Reports: No Symptoms Reported EENTM: Reports: No Symptoms Reported Respiratory: Reports: No Symptoms Reported Cardiac: Reports: No Symptoms Reported Abdominal: Reports: No Symptoms Reported Genitourinary Symptoms: Reports: No Symptoms Reported Musculoskeletal Complaints: Reports: Joint Pain - Right lower extremity pain Neurological: Reports: No Symptoms Reported Skin: Reports: No Symptoms Reported Endocrine: Reports: No Symptoms Reported - Vitals Vitals: Last Vital Signs Temp 36.6 C 04/30/21 10:01 Pulse 89 04/30/21 10:01 Resp 12 04/30/21 10:01 BP 152/74 H 04/30/21 10:01 Pulse Ox 98 04/30/21 10:01 - Abnormal Lab Findings Abnormal Lab Findings: Abnormal Lab Results 04/30/21 04/30/21 Range/Units 06:19 06:19 WBC 12.7 H (4.0-10.5) K/mm3 RBC 3.64 L (4.2-5.4) M/mm3 Hgb 11.0 L (12.5-16.0) gm/dL Hct 34.4 L (37.0-47.0) % Potassium 4.9 H (3.4-4.6) mmol/L Random Glucose 238 H D (70-110) mg/dL - Exam Constitutional: Present: Alert, Oriented x3, Cooperative, Well developed, No distress, Morbidly obese ENT Exam: Present: normal ENT inspection, hearing grossly normal Neck: Present: non-tender, full range of motion, supple, normal inspection, trachea midline Respiratory: Present: chest non-tender, lungs clear, normal breath sounds, no respiratory distress, no accessory muscle use Cardiovascular/Chest: Present: normal peripheral pulses, regular rate, rhythm, no chest tenderness, no edema, no gallop, no JVD, no murmur, no rub Abdomen: Present: Normal bowel sounds, soft, nontender, nondistended, no rebound tenderness, no hepatospenomegaly, no masses, obese /Rectal: Present: Exam deferred Extremity: Present: no pedal edema, no calf tenderness, leg pain, other - Right lower extremity covered by clear and dry surgical dressings Skin Exam: Present: normal color, warm/dry, no cyanosis Lymphatic: Present: no adenopathy Neurologic: Present: 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, no motor/sensory deficits, alert, normal mood/affect Appearance: Present: appropriate appearance, appropriate insight, neat, no memory impairment Eye contact: Present: cooperative, good eye contact, normal speech Thoughts: Present: normal thought pattern, no apparent hallucination Cauti Physician Documentation - Urinary Catheter Management Urethral ([place]) Date of Insertion: 04/29/21 Time of Insertion: 01:11 Assessment/Plan - Problems/Diagnosis (1) Femur fracture, right Problem: Acute Qualifiers: Encounter type: initial encounter Femur location: distal, unspecified portion Fracture type: closed Fracture morphology: other fracture Qualified Code(s): S72.491A - Other fracture of lower end of right femur, initial encounter for closed fracture (2) Laceration of scalp Problem: Acute Qualifiers: Encounter type: initial encounter Qualified Code(s): S01.01XA - Laceration without foreign body of scalp, initial encounter (3) Hypertension Problem: Acute Qualifiers: (4) Hyperlipidemia Problem: Acute Qualifiers: (5) Diabetes mellitus Problem: Acute Qualifiers: (6) Internal derangement of knee Problem: Acute (7) Total knee replacement status Problem: Acute Qualifiers: (8) Status post open reduction and internal fixation (ORIF) of fracture Problem: Acute
[2021-04-30] MEDS: PROCHLORPERAZINE EDISYLATE 5 MG/ML VIAL IV PRN ×2 (13:38→19:43)
[2021-04-30] MEDS: HYDROcodone/ACETAMINOPHEN 1 EACH TABLET PO PRN ×2 (13:38→19:43)
[2021-04-30] MEDS: ENOXAPARIN SODIUM 40 MG/0.4 ML SYRG SC SCH (17:47)
--- NOTE | 2021-04-30 18:30 | PN ---
Subjective - Date and Time Seen Date: 04/30/21 Time: 07:30 Subjective Narrative: Subjective: Reports some nausea as well as pain. She is sitting up in bed at this time. Denies calf pain. Physical exam: Alert and oriented to person, place and time Right lower extremity: Palpable dorsalis pedis pulse. Sensation grossly intact to light touch. Dressings clean and dry. Able to flex and extend ankle and toes. No excessive drainage. Calf and thigh are soft and nontender. Assessment: Postop day 1 status post open reduction internal fixation of right periprosthetic femur fracture. Plan: Continue with physical and occupational therapy non-weightbearing/toe-touch. Continue with anticoagulation. 24 hours postoperative prophylactic antibiotics. Pain control with goal to rely on oral medications. Continue bowel regimen. Will need 6-8 weeks with walker or assistive device to protect joint while ambulating during the recovery process. Discharge planning. From an orthopedic standpoint when she is medically stable, she is okay to be transferred to a [facility] facility. She will continue to be toe-touch weightbearing with her knee immobilizer. No range of motion of the knee. Keep her dressings in place and her wound clean and dry. We will see her back in 2 weeks in the orthopedic department. She will need continued DVT prophylaxis for approximately 6 weeks. Objective - Vitals Vitals: Last Vital Signs Temp 36.6 C 04/30/21 13:35 Pulse 90 04/30/21 13:35 Resp 16 04/30/21 13:35 BP 154/65 H 04/30/21 13:35 Pulse Ox 95 04/30/21 13:35 - Abnormal Lab Findings Abnormal Lab Findings: Abnormal Lab Results 04/30/21 04/30/21 Range/Units 06:19 06:19 WBC 12.7 H (4.0-10.5) K/mm3 RBC 3.64 L (4.2-5.4) M/mm3 Hgb 11.0 L (12.5-16.0) gm/dL Hct 34.4 L (37.0-47.0) % Potassium 4.9 H (3.4-4.6) mmol/L Random Glucose 238 H D (70-110) mg/dL Cauti Physician Documentation - Urinary Catheter Management Urethral (Cornell) Date of Insertion: 04/29/21 Time of Insertion: 01:11 Date of Removal: 04/30/21 Time of Removal: 13:45 Assessment/Plan - Problems/Diagnosis (1) Femur fracture, right Problem: Acute Qualifiers: Encounter type: subsequent encounter Femur location: distal, unspecified portion Fracture type: closed Fracture morphology: other fracture Fracture healing: with routine healing Qualified Code(s): S72.491D - Other fracture of lower end of right femur, subsequent encounter for closed fracture with routine healing
[2021-04-30] MEDS: SENNOSIDES/DOCUSATE SODIUM 1 TAB TABLET PO SCH (20:27)
[2021-04-30] MEDS: DILTIAZEM HCL 240 MG CAP.SR.24H PO SCH (20:28)
[2021-04-30] MEDS: ROSUVASTATIN CALCIUM 5 MG TABLET PO SCH (20:32)
[2021-05-01] MEDS: PANTOPRAZOLE SODIUM 20 MG TABLET.DR PO SCH ×2 (07:14→20:31)
[2021-05-01] MEDS: HYDROcodone/ACETAMINOPHEN 1 EACH TABLET PO PRN ×2 (07:16→16:27)
[2021-05-01] MEDS: PROCHLORPERAZINE EDISYLATE 5 MG/ML VIAL IV PRN (07:19)
[2021-05-01] MEDS: CHOLECALCIFEROL 1,000 UNIT CAPSULE PO SCH (09:01)
[2021-05-01] MEDS: ASCORBIC ACID 500 MG TABLET PO SCH (09:03)
[2021-05-01] MEDS: LOSARTAN POTASSIUM 50 MG TABLET PO SCH (09:04)
[2021-05-01] MEDS: SPIRONOLACTONE 25 MG TABLET PO SCH (09:05)
[2021-05-01] MEDS: INSULIN GLARGINE,HUM.REC.ANLOG 100 UNITS/ML VIAL SC SCH ×2 (09:06→20:35)
[2021-05-01] MEDS ORDERED: PROCHLORPERAZINE MALEATE 10 MG TABLET PO PRN (09:09)
--- NOTE | 2021-05-01 09:22 | PN ---
Subjective - Date and Time Seen Date: 05/01/21 Time: 09:18 Subjective Narrative: I have some pain and discomfort but meds help Objective Objective Narrative: 75-year-old female status post right ORIF postop day 2 was evaluated bedside this morning was found to be afebrile in no acute distress. Patient is tolerating postoperative physical therapy as ordered by Ortho without any major issues, her only complaint at the moment is mild nausea for which she is being administered antiemetics. Discharge planning is underway the patient will be going to [facility] in [place] where she will continue her rehab. Per orders from the orthopedic team the patient is going to need 8 weeks of and ambulatory assistance with a walker or other assistive devices and 6 weeks of anticoagulation which she has started. We will continue working on the transportation and the logistics of getting her to the center tomorrow. - Review of Systems Generalized/Overall Review: Reports: No Symptoms Reported EENTM: Reports: No Symptoms Reported Respiratory: Reports: No Symptoms Reported Cardiac: Reports: No Symptoms Reported Abdominal: Reports: No Symptoms Reported Genitourinary Symptoms: Reports: No Symptoms Reported Musculoskeletal Complaints: Reports: Other - Right lower extremity pain Neurological: Reports: No Symptoms Reported Skin: Reports: No Symptoms Reported Endocrine: Reports: No Symptoms Reported - Vitals Vitals: Last Vital Signs Temp 36.8 C 05/01/21 06:00 Pulse 100 05/01/21 09:04 Resp 20 05/01/21 06:00 BP 152/63 H 05/01/21 09:04 Pulse Ox 92 L 05/01/21 06:00 - Exam Constitutional: Present: Alert, Oriented x3, Cooperative, Well developed, No distress, Morbidly obese ENT Exam: Present: normal ENT inspection, hearing grossly normal Neck: Present: non-tender, full range of motion, supple, normal inspection, trachea midline Breasts: Present: Exam deferred, Nontender Respiratory: Present: chest non-tender, lungs clear, normal breath sounds, no respiratory distress, no accessory muscle use Cardiovascular/Chest: Present: normal peripheral pulses, regular rate, rhythm, no chest tenderness, no edema, no gallop, no JVD, no murmur, no rub Abdomen: Present: soft, nontender, nondistended, no rebound tenderness, no hepatospenomegaly, obese Extremity: Present: no calf tenderness, leg pain - Right lower extremity pain and tenderness covered by brace. Skin Exam: Present: normal color, warm/dry, no cyanosis Lymphatic: Present: no adenopathy Appearance: Present: appropriate appearance, appropriate insight, neat, no memory impairment Eye contact: Present: cooperative, good eye contact, normal speech Cauti Physician Documentation - Urinary Catheter Management Urethral ([place]ell) Date of Insertion: 04/29/21 Time of Insertion: 01:11 Date of Removal: 04/30/21 Time of Removal: 13:45 Assessment/Plan - Problems/Diagnosis (1) Femur fracture, right Problem: Acute Qualifiers: Encounter type: subsequent encounter Femur location: distal, unspecified portion Fracture type: closed Fracture morphology: other fracture Fracture healing: with routine healing Qualified Code(s): S72.491D - Other fracture of lower end of right femur, subsequent encounter for closed fracture with routine healing (2) Laceration of scalp Problem: Acute Qualifiers: Encounter type: initial encounter Qualified Code(s): S01.01XA - Laceration without foreign body of scalp, initial encounter (3) Hypertension Problem: Acute Qualifiers: (4) Hyperlipidemia Problem: Acute Qualifiers: (5) Diabetes mellitus Problem: Acute Qualifiers: (6) Internal derangement of knee Problem: Acute (7) Total knee replacement status Problem: Acute Qualifiers: (8) Status post open reduction and internal fixation (ORIF) of fracture Problem: Acute
--- NOTE | 2021-05-01 14:17 | PN ---
Subjective - Date and Time Seen Date: 05/01/21 Time: 14:16 Subjective Narrative: Subjective: Reports some nausea as well as pain. Improved from yesterday. She was able to move in the room with therapy. Denies calf pain. Physical exam: Alert and oriented to person, place and time Right lower extremity: Palpable dorsalis pedis pulse. Sensation grossly intact to light touch. Dressings clean and dry. Able to flex and extend ankle and toes. No excessive drainage. Calf and thigh are soft and nontender. Assessment: Postop day 2 status post open reduction internal fixation of right periprosthetic femur fracture. Plan: Continue with physical and occupational therapy non-weightbearing/toe-touch. Continue with anticoagulation. 24 hours postoperative prophylactic antibiotics. Pain control with goal to rely on oral medications. Continue bowel regimen. Will need 6-8 weeks with walker or assistive device to protect joint while ambulating during the recovery process. Discharge planning. From an orthopedic standpoint when she is medically stable, she is okay to be transferred to a correction therapy facility. She will continue to be toe-touch weightbearing with her knee immobilizer. No range of motion of the knee. Keep her dressings in place and her wound clean and dry. We will see her back in 2 weeks in the orthopedic department. She will need continued DVT prophylaxis for approximately 6 weeks. Objective - Vitals Vitals: Last Vital Signs Temp 36.8 C 05/01/21 10:00 Pulse 88 05/01/21 10:00 Resp 18 05/01/21 10:00 BP 157/54 H 05/01/21 10:00 Pulse Ox 97 05/01/21 10:00 Cauti Physician Documentation - Urinary Catheter Management Urethral ([place]) Date of Insertion: 04/29/21 Time of Insertion: 01:11 Date of Removal: 04/30/21 Time of Removal: 13:45 Assessment/Plan - Problems/Diagnosis (1) Femur fracture, right Problem: Acute Qualifiers: Encounter type: subsequent encounter Femur location: distal, unspecified portion Fracture type: closed Fracture morphology: other fracture Fracture healing: with routine healing Qualified Code(s): S72.491D - Other fracture of lower end of right femur, subsequent encounter for closed fracture with routine healing
[2021-05-01] MEDS: ENOXAPARIN SODIUM 40 MG/0.4 ML SYRG SC SCH (16:09)
[2021-05-01] MEDS: PROCHLORPERAZINE MALEATE 10 MG TABLET PO PRN (16:27)
[2021-05-01] MEDS: sitaGLIPtin PHOSPHATE 50 MG TABLET PO SCH (17:45)
[2021-05-01] MEDS: SENNOSIDES/DOCUSATE SODIUM 1 TAB TABLET PO SCH (20:31)
[2021-05-01] MEDS: DILTIAZEM HCL 240 MG CAP.SR.24H PO SCH (20:31)
[2021-05-01] MEDS: ROSUVASTATIN CALCIUM 5 MG TABLET PO SCH (20:34)
[2021-05-02] MEDS: HYDROcodone/ACETAMINOPHEN 1 EACH TABLET PO PRN ×2 (05:14→12:29)
[2021-05-02] MEDS: PROCHLORPERAZINE MALEATE 10 MG TABLET PO PRN ×2 (05:14→12:34)
[2021-05-02] MEDS: PANTOPRAZOLE SODIUM 20 MG TABLET.DR PO SCH (07:33)
[2021-05-02] MEDS: CHOLECALCIFEROL 1,000 UNIT CAPSULE PO SCH (08:28)
[2021-05-02] MEDS: INSULIN GLARGINE,HUM.REC.ANLOG 100 UNITS/ML VIAL SC SCH (08:32)
[2021-05-02] MEDS: SPIRONOLACTONE 25 MG TABLET PO SCH (08:34)
[2021-05-02] MEDS: LOSARTAN POTASSIUM 50 MG TABLET PO SCH (08:34)
[2021-05-02] MEDS: ASCORBIC ACID 500 MG TABLET PO SCH (08:34)
--- NOTE | 2021-05-02 09:05 | DS ---
Date of Discharge:: 05/02/21 Hospital Course: Irais Burt is a 75-year-old female with past medical history of type 2 diabetes, hypertension, morbid obesity, depression, anxiety disorder, hyperlipidemia, and bilateral total knee replacements who was admitted on 04/29/2021 because of a fall. She was brought to the ER for evaluation of injuries that she sustained when she fell in her home that night before her admission. Data patient reports she was at home with her dog and get up the phone with her niece and went to open the door to let the dog out and somehow she lost her footing and fell onto her right side. Patient reports hitting her head on a steel door frame sustaining a laceration to her forehead, she does ho wever denies losing consciousness or any neurological symptoms. The patient immediately felt pain in her right leg specifically her knee and rated as a 10 out of 10. She had bilateral knee replacements several years ago and had no issues with them until now. Once in the ER the patient underwent imaging that confirmed a fracture of distal portion of the right femur, imaging of her head and neck was negative for any acute injuries. Labs on admission were nonremarkable, she has adequate hemoglobin and an unremarkable CMP. Orthopedics have was consulted and she underwent open reduction internal fixation of her right periprosthetic femoral fracture with plates and screws. Postoperatively patient was referred to PT OT and her postop. Was unremarkable. She does however need further physical therapy/Occupational Therapy and is now being discharged to the [place] [facility]. Procedures Performed: none List Procedures: Open reduction internal fixation of a periprosthetic femoral fracture, left with plates and screws Results and Findings: Lab Pending Results 04/28/21 21:58: SARS-CoV-2 (PCR) Not detected 04/28/21 23:00: WBC 15.0 H, RBC 4.33, Hgb 13.1, Hct 40.2, MCV 92.8, MCH 30.3, MCHC 32.6, RDW 12.0, Plt Count 244, MPV 9.5, Immature Gran % (Auto) 0.70 H, Im mature Gran # (Auto) 0.10 H, Neutrophils % 67.9, Lymphocytes % 21.8, Monocytes % 7.8, Eosinophils % 1.3, Basophils % 0.5, Nucleated RBC % 0.0, Neutrophils # 10.2 H, Lymphocytes # 3.28, Monocytes # 1.2 H, Eosinophils # 0.2, Absolute Basophils 0.1 04/28/21 23:00: Sodium 139, Plasma Sodium 140, Potassium 4.4, Chloride 102, Carbon Dioxide 29.5, Anion Gap 11.9, BUN 19, Creatinine 1.06, Est GFR (Non-Af Amer) 54 L, BUN/Creatinine Ratio 17.9, Random Glucose 179 H, Calcium 9.1, Calcium Adj for Albumin 9.0, Total Bilirubin 0.2, AST 16, ALT 41, Alkaline Phosphatase 67, Total Protein 7.2, Albumin 3.7 04/30/21 06:19: WBC 12.7 H, RBC 3.64 L, Hgb 11.0 L, Hct 34.4 L, MCV 94.5, MCH 30.2, MCHC 32.0, RDW 12.1, Plt Count 216, MPV 9.4 04/30/21 06:19: Sodium 136, Plasma Sodium 138, Potassium 4.9 H, Chloride 102, Carbon Dioxide 26.9, Anion Gap 12.0, BUN 16, Creatinine 0.81, Est GFR (Non-Af Amer) 74 D, BUN/Creatinine Ratio 19.8, Random Glucose 238 H D, Calcium 8.1 Discharge Location: Other - [facility] Disposition: SNF Condition: Good Level of Care: SNF Discharge Activity: Weight bearing - Weightbearing with toe-touch and knee immobilizer per Ortho Discharge Diet: Consistent carbs, Low salt Group Home Therapy: Physical Therapy, Occupation Therapy Referrals: Eloise Garcia MD [Primary Care Provider] - Additional Patient Instructions (free text): TO [facility] for PT and OT to evaluate and treat. Continue toe-touch weightbearing with knee immobilizer. No range of motion of the knee. Keep dressings in place and her wound clean and dry. DVT prophylaxis for approximately 6 weeks. CPAP at night with home settings Follow up with [facility] Orthopedics office on WednesdayMay 14 at 1:00pm Ortho Plan: Continue with physical and occupational therapy non-weightbearing/toe-touch. Continue with anticoagulation. Pain control with goal to rely on oral medicat ions. Continue bowel regimen. Will need 6-8 weeks with walker or assistive device to protect joint while ambulating during the recovery process. Discharge planning. From an orthopedic standpoint when she is medically stable, she is okay to be transferred to a group home therapy facility. She will continue to be toe-touch weightbearing with her knee immobilizer. No range of motion of the knee. Keep her dressings in place and her wound clean and dry. She will need continued DVT prophylaxis for approximately 6 weeks. Prescriptions (Any new or edited meds): Enoxaparin Sodium [Lovenox] 40 mg SC Q24H 40 Days #40 disp.syrin Transmission Status: Pending to [facility] HYDROcodone/ACETAMINOPHEN [Emerson 5-325] 2 ea PO Q6H PRN #20 tab PRN Reason: Pain Transmission Status: Sent to [facility] Sennosides/Docusate Sodium [Senokot-S] 2 tab PO HS #30 tab Transmission Status: Pending to [facility] Acetaminophen [Tylenol] 650 mg PO Q4H PRN #30 tab PRN Reason: Mild Pain (Pain Scale 1-3) Transmission Status: Pending to [facility] Complete Home Medications List: Complete Home Medication List: Aspirin 325 mg PO DAILY 03/15/17 albuterol sulfate 90 mcg/actuation aerosol inhaler 2 inh IH Q6H PRN #18 g 09/07/19 cholecalciferol (vitamin D3) 50 mcg (2,000 unit) capsule 4,000 unit PO DAILY #180 cap 09/07/19 vitamin B12 500 mcg-folic acid 400 mcg tablet 1 tab PO DAILY #90 tab 09/07/19 ascorbic acid (vitamin C) 1,000 mg tablet 1 g PO DAILY #60 tab 10/06/19 blood sugar diagnostic See Dose Instructions .ROUTE .MEDSUPPLY #200 ea 02/07/20 compression stockings 0 .ROUTE .MEDSUPPLY #1 ea 09/06/20 metformin 1,000 mg 24 hr tablet,extended release 1,000 mg PO BID #180 tab 09/06/20 atorvastatin 10 mg tablet 10 mg PO DAILY #90 tab 10/03/20 diltiazem HCl 240 mg capsule,extended release 24 hr, controlled 240 mg PO Q24H #90 cap 10/03/20 losartan 50 mg tablet 50 mg PO DAILY #90 tab 10/03/20 sitagliptin 100 mg tablet 100 mg PO DAILY #90 tab 10/03/20 insulin syringe-needle U-100 1 mL 31 gauge x 5/16" See Rx Instructions .ROUTE .MEDSUPPLY #100 ea 11/26/20 insulin glargine 100 unit/mL subcutaneous solution 53 unit SUBCUT BID #50 ml 01/07/21 spironolactone 25 mg tablet 25 mg PO DAILY #90 tab 03/06/21 Acetaminophen [Tylenol] 650 mg PO Q4H PRN #30 tab 05/02/21 Enoxaparin Sodium [Lovenox] 40 mg SC Q24H 40 Days #40 disp.syrin 05/02/21 HYDROcodone/ACETAMINOPHEN [Emerson 5-325] 2 ea PO Q6H PRN #20 tab 05/02/21 Sennosides/Docusate Sodium [Senokot-S] 2 tab PO HS #30 tab 05/02/21 Forms: Patient Portal Registration
[2021-05-02 15:00] VITALS: BP 147/57
== END 2021-05-02 14:41 | DRG 481 ==
LOC: ER 20:31 → MS 23:47
PROVIDERS: ADMIT Family Medicine; ATTEND Family Medicine
DX: F41.8 Other specified anxiety disorders; E11.9 Type 2 diabetes mellitus without complications; S72.401A Unspecified fracture of lower end of right femur, initial encounter for closed fracture; E66.01 Morbid (severe) obesity due to excess calories; W18.09XA Striking against other object with subsequent fall, initial encounter; I10 Essential (primary) hypertension; M97.11XA Periprosthetic fracture around internal prosthetic right knee joint, initial encounter; Z96.653 Presence of artificial knee joint, bilateral; E78.5 Hyperlipidemia, unspecified; S01.01XA Laceration without foreign body of scalp, initial encounter; Z68.42 Body mass index [BMI] 45.0-49.9, adult